=== PATIENT | female | born 1955 | race Caucasian/White ===

== ENCOUNTER → 2021-08-23 | Outpatient (CLI) | payer MEDICARE, BC ==
[2021-08-23 18:01] LABS: CREATININE 1.5 mg/dL (0.6-1.0); GFR 34.5; POTASSIUM 4.5 mmol/L (3.5-5.1)
== END ==
LOC: LAB 17:21
PROVIDERS: ATTEND Family Medicine
DX: N13.39 Other hydronephrosis (principal)
CPT/HCPCS: 36415; 80048